=== PATIENT | male | born 1995 | race Caucasian/White ===

== ENCOUNTER 2024-01-23 11:09 | Emergency (ER) | payer OTHER, SELFPAY ==
[2024-01-23] VITALS (35 sets, daily range): BP systolic 116–164; BP diastolic 71–118; PULSE 54–119; RESP 11–27; TEMP 36.8; O2SAT 91–100
[2024-01-23 11:35] LABS: Basophils Percent Auto 0.8 % (0.2-1.2); Eosinophils Absolute Auto 0.1 K/mm3 (0-0.3); Eosinophils Percent Auto 1.3 % (0-4.4); Hematocrit 45.1 % (42.0-52.0); Hemoglobin 15.8 g/dL (14.0-18.0); Immature Granulocyte Absolute 0.02 K/mm3 (0.00-0.031); Immature Granulocyte Percent A 0.4 % (0-0.5); Lymphocytes Absolute Auto 1.13 K/mm3 (0.9-3.2); Lymphocytes Percent Auto 21.8 % (18.3-44.2); Mean Corpuscular Hemoglobin 33.1 pg (26-34); Mean Corpuscular Volume 94.5 fl (80-100); Mean Platelet Volume 8.7 fl (7.4-10.4); Monocytes Absolute Auto 0.5 K/mm3 (0.1-0.6); Monocytes Percent Auto 8.9 % (2.6-8.5); Neutrophils Absolute Auto 3.5 K/mm3 (1.3-6.7); Neutrophils Percent Auto 66.8 % (45.5-73.1); Platelet Count Result 353 k/mm3 (150-375); Red Blood Count 4.77 M/mm3 (4.6-6.20); Red Cell Distribution Width 12.9 % (11.5-14.5); White Blood Count 5.2 K/mm3 (4.5-10.0)
[2024-01-23 11:44] LABS: Alanine Aminotransferase 45 U/L (6-50); Albumin Level 4.9 g/dL (3.5-5.1); Alkaline Phosphatase 65 U/L (38-126); Anion Gap 7 mmol/L (4-12); Aspartate Amino Transferase 51 U/L (17-59); Blood Urea Nitrogen 4 mg/dL (9-20); Calcium 9.3 mg/dL (8.4-10.2); Carbon Dioxide 30 mmol/L (22-30); Chloride 100 mmol/L (98-107); Estimated CRCL calculation 120 ml/min; Estimated Glomerular Filt Rate > 60; Glucose 113 mg/dL (65-110); Magnesium 1.7 mg/dL (1.6-2.3); Potassium 3.9 mmol/L (3.4-5.0); Sodium 137 mmol/L (137-145)
[2024-01-23 11:55] LABS: Ethanol < 10 mg/dL (<10)
[2024-01-23] MEDS: SODIUM CHLORIDE 0.9% IV 1,000 ML 999 ML (12:00)
--- NOTE | 2024-01-23 12:42 | ED_ITS ---
HPI - Nausea/Vomiting/Diarrhea General Chief complaint: Nausea/Vomiting/Diarrhea Stated complaint: vomiting Time Seen by Provider: 01/23/24 12:00 History of Present Illness HPI Narrative: 28-year-old male presenting with vomiting and diarrhea. Patient states that diarrhea started about a week ago and then he has been vomiting for the last couple of days. States he has been unable to keep anything down since Friday. He denies abdominal pain, dysuria or hematuria, fevers. He is a frequent drinker but he denies any prior episodes of withdrawal. States that he has recently been able to go several weeks without drinking without any trouble. Related Data Allergies Allergy/AdvReac Type Severity Reaction Status Date / Time No Known Allergies Allergy Verified 01/23/24 11:10 Review of Systems Review of Systems: All systems reviewed & are unremarkable except as noted in HPI and below Exam Narrative: GENERAL: nontoxic, no acute distress, pleasant cooperative, somewhat tremulous though he and his mother state that this is typical for him. HEAD: Normocephalic, atraumatic. EYES: PERRLA and EOMI. ENT: Mucous membranes moist. NECK: Supple. CHEST: Clear to auscultation. No respiratory distress. HEART: Regular rate and rhythm ABDOMEN: Soft, nontender, nondistended EXTREMITIES: Normal range of motion SKIN: Warm, dry, no rash. NEURO: Alert and oriented x3. PSYCH: Normal mood and affect. denies anxiety Course Vital Signs Vital signs: Vital Signs Temperature 98.2 F 01/23/24 11:24 Pulse Rate 96 01/23/24 11:24 Respiratory Rate 22 H 01/23/24 11:24 Blood Pressure 164/107 H 01/23/24 11:24 Pulse Oximetry 98 01/23/24 11:24 Temperature 98.2 F 01/23/24 11:24 Pulse Rate 71 01/23/24 17:49 Respiratory Rate 15 01/23/24 17:49 Blood Pressure 128/86 01/23/24 17:49 Pulse Oximetry 98 01/23/24 17:49 MDM - Nausea/Vomiting/Diarrhea MDM Narrative Medical decision making narrative: 28-year-old male presenting with nausea, vomiting, diarrhea. Patient is hypertensive, otherwise vitals are within normal limits. Exam remarkable for the above. Blood work is unremarkable. Lipase is pending. Patient is a bit tremulous but he and his mother states that he is often tremulous. States that it does seem worse today. He denies anxiety or concern for withdrawal. States that he has a history of hypertension as well. Will treat with Zofran, Pepcid, Ativan, fluids and re-evaluate. Consider Librium taper upon discharge. Offered care coordination services to discuss with him substance abuse services but he declines at this time. States that he is working with someone on his own already. On re-evaluation, the patient is sleeping comfortably. he is tolerating p.o. intake. He is agreeable with a Librium taper. He states that he is already see ing someone for addiction problems. Will also provide the phone number for [place]. appropriate return precautions and supportive care given. Discharged in stable condition. Differential Diagnosis Differential diagnosis: Likely food poisoning, gastroenteritis, dehydration and other (ethanol withdrawal, diarrhea) Medical Records Attestation: I reviewed the patient's medical records. Lab Data Attestation: I reviewed the patient's lab results. 01/23/24 11:29 01/23/24 11:29 Labs: Lab Results 01/23/24 01/23/24 Range/Units 11:24 11:29 WBC 5.2 (4.5-10.0) K/mm3 RBC 4.77 (4.6-6.20) M/mm3 Hgb 15.8 (14.0-18.0) g/dL Hct 45.1 (42.0-52.0) % MCV 94.5 (80-100) fl MCH 33.1 (26-34) pg MCHC 35.0 (32-36) g/dl RDW 12.9 (11.5-14.5) % Plt Count 353 (150-375) k/mm3 MPV 8.7 (7.4-10.4) fl Immature Gran % (Auto) 0.4 (0-0.5) % Neut % (Auto) 66.8 (45.5-73.1) % Lymph % (Auto) 21.8 (18.3-44.2) % [place] % (Auto) 8.9 H (2.6-8.5) % Eos % (Auto) 1.3 (0-4.4) % Baso % (Auto) 0.8 (0.2-1.2) % Lymph # (Auto) 1.13 (0.9-3.2) K/mm3 [place] # (Auto) 0.5 (0.1-0.6) K/mm3 Eos # (Auto) 0.1 (0-0.3) K/mm3 Baso # (Auto) 0.0 (0.0-0.1) K/mm3 Abs Immat Gran (auto) 0.02 (0.00-0.031) K/mm3 Absolute Neuts (auto) 3.5 (1.3-6.7) K/mm3 Absolute Nucleated RBC 0.000 (0.0-0.012) K/mm3 Nucleated RBC % 0.0 (0.0-0.2) % Sodium 137 (137-145) mmol/L Potassium 3.9 (3.4-5.0) mmol/L Chloride 100 (98-107) mmol/L Carbon Dioxide 30 (22-30) mmol/L Anion Gap 7 (4-12) mmol/L BUN 4 L (9-20) mg/dL Creatinine 0.80 (0.7-1.3) mg/dL Estim Creat Clear Calc 120 ml/min Estimated GFR > 60 (59 - ) Glucose 113 H (65-110) mg/dL Calcium 9.3 (8.4-10.2) mg/dL Magnesium 1.7 (1.6-2.3) mg/dL Total Bilirubin 1.0 (0.2-1.3) mg/dL AST 51 (17-59) U/L ALT 45 (6-50) U/L Alkaline Phosphatase 65 (38-126) U/L Total Protein 8.0 (6.3-8.2) g/dL Albumin 4.9 (3.5-5.1) g/dL Lipase 47 (23-300) U/L Ethyl Alcohol < 10 (<10) mg/dL Critical Care Time Critical Care Time Critical Care Time: No Discharge Plan Discharge Clinical Impression: Nausea, vomiting and diarrhea, Alcohol use disorder Patient Disposition: Home, Self-Care Condition: Stable Instructions: Antibiotic Form, Acute Nausea and Vomiting (DC), Alcohol Withdrawal (DC), Alcohol Use Disorder (ED) Additional Instructions: We are treating you with a medication for alcohol withdrawal. Please take this as prescribed. Please do not drink alcohol while taking it. We have also sent in for nausea medicine to be used as needed. Please make sure to follow-up closely with the outpatient resources as discussed for further help and resources. If your symptoms worsen or other concerning symptoms arise, please return to the ER. [facility]: Prescriptions: New ondansetron 4 mg tablet,disintegrating 4 mg PO Q8H PRN (Reason: nausea and vomiting) Qty: 14 0RF chlordiazepoxide HCl 25 mg capsule 25 mg PO .q4-12 Qty: 25 0RF Rx Instructions: Day 1: 50 mg every 4 to 6 hours. Day 2: 50 mg every 8 to 12 hours. Day 3: 50 mg every 12 to 24 hours. Day 4: 25 mg every 12 to 24 hours, then discontinue. Follow-up/Referrals: UNKNOWN,DOCTOR [Primary Care Provider] -
[2024-01-23] MEDS: LORazepam INJ (*CRX) 2 MG/ML VIAL 1 MG IV PUSH (12:53)
[2024-01-23] MEDS: LACTATED RINGERS 1,000 ML 999 ML IV CONT (12:53)
[2024-01-23] MEDS: FAMOTIDINE 20 MG/2 ML VIAL IV PUSH (12:54)
[2024-01-23] MEDS: ONDANSETRON INJ 4 MG/2 ML VIAL IV PUSH (12:54)
--- NOTE | 2024-01-23 13:05 | PC.NURSE ---
Lab called regarding add-on lipase.
[2024-01-23 13:23] LABS: Lipase 47 U/L (23-300)
[2024-01-23] MEDS: chlordiazePOXIDE (*CRX) 25 MG CAPSULE 50 MG PO (17:53)
== END 2024-01-23 18:59 | disposition home or self-care (01) ==
PROVIDERS: Student in an Organized Health Care Education/Training Program; Emergency Provider Emergency Medicine
DX: R11.2 Nausea with vomiting, unspecified (principal); R19.7 Diarrhea, unspecified; F10.90 Alcohol use, unspecified, uncomplicated
CPT/HCPCS: 36415; 80053; 82077; 83690; 83735; 85025; 96361; 96374; 96375; 99284; A9270; J2060; J2405; J7030; J7120